=== PATIENT | female | born 1970 | race Caucasian/White ===

== ENCOUNTER 2016-10-06 21:16 | Emergency (ER) | payer SELFPAY ==
[2016-10-06 21:21] VITALS: BP 137/89; PULSE 85; TEMP 97.9; BMI 42.5
--- NOTE | 2016-10-06 22:28 | PDOC ---
History of Present Illness - General History Source: Patient Exam Limitations: No Limitations - History of Present Illness Initial Comments: 10/06/16 22:42 The patient is a 46 year old female with significant past medical history of kidney stones who presents to the ED for 2 days of left flank pain. Patient states having a history of kidney stones and passed gravel recently. She reports she was seen by her doctor earlier today where she was informed that she probably has a kidney stone without any study being done. A urinalysis was done, which was negative. She was given oxycontin with no relief. She denies dysuria, hematuria, urgency, and frequency. Patient also has complaints of nausea, but no vomiting. The patient denies fever, chills, cough, SOB, chest pain, abdominal pain, and diarrhea. Allergies: NKDA Social History: No alcohol, tobacco, or drug use reported. Past Surgical History: appendectomy, x2 PCP: Dr. Jo Al-Joy <Amy Caballero - Last Filed: 10/07/16 02:00> - General History Source: Patient <GradyBautista - Last Filed: 10/07/16 02:11> - General Chief Complaint: Pain Stated Complaint: PAIN, ACUTE Time Seen by Provider: 10/06/16 22:20 Past History <Amy Caballero - Last Filed: 10/07/16 02:00> - Past Medical History Thyroid Disease: Yes - Surgical History Appendectomy: Yes - Psycho/Social/Smoking Cessation Hx Anxiety: Yes Suicidal Ideation: No Smoking History: Never smoked <Bautista Rasmussen - Last Filed: 10/07/16 02:11> - Past Medical History Allergies/Adverse Reactions: Allergies Allergy/AdvReac Type Severity Reaction Status Date / Time No Known Allergies Allergy Verified 10/06/16 21:20 Home Medications: Ambulatory Orders Ibuprofen 800 mg PO TID #30 tablet 10/07/16 Levofloxacin [Levaquin -] 500 mg PO DAILY #7 tablet 10/07/16 Metoclopramide HCl [Reglan -] 10 mg PO TID #30 tablet 10/07/16 Review of Systems - Review of Systems Able to Perform ROS?: Yes Comments:: 10/06/16 22:42 CONSTITUTIONAL: Absent: fever, no chills, no fatigue EYES: Absent: visual changes ENT: Absent: ear pain, no sore throat CARDIOVASCULAR: Absent: chest pain, no palpitations RESPIRATORY: Absent: cough, no SOB GI: +nausea Absent: abdominal pain, no vomiting, no constipation, no diarrhea GENITOURINARY: +left flank pain Absent: dysuria, no frequency, no hematuria MUSCULOSKELETAL: Absent: back pain, no arthralgia, no myalgia SKIN: Absent: rash NEURO: Absent: headache <Amy Caballero - Last Filed: 10/07/16 02:00> *Physical Exam - Vital Signs Last Vital Signs Temp Pulse Resp BP Pulse Ox 97.9 F 85 18 137/89 100 10/06/16 21:17 10/06/16 21:17 10/06/16 21:17 10/06/16 21:17 10/06/16 21:17 - Physical Exam Comments: 10/06/16 22:42 GENERAL: Well-appearing, well-nourished. No apparent distress. HEENT: Normocephalic, atraumatic. PERRL, EOM intact. CARDIOVASCULAR: Normal S1, S2. Regular rate and rhythm. PULMONARY: Clear to auscultation bilaterally. ABDOMEN: Soft, non-distended, non-tender. MUSCULOSKELETAL: Left CVA tenderness EXTREMITIES: Normal ROM in all four extremities. No gross deformities. SKIN: Warm, dry. No rash NEUROLOGICAL: No focal neurological deficits. <Amy Caballero - Last Filed: 10/07/16 02:00> - Vital Signs Last Vital Signs Temp Pulse Resp BP Pulse Ox 97.9 F 85 18 137/89 100 10/06/16 21:17 10/06/16 21:17 10/06/16 21:17 10/06/16 21:17 10/06/16 21:17 <Bautista Rasmussen - Last Filed: 10/07/16 02:11> ED Treatment Course - RADIOLOGY Radiograph Interpretation: 10/07/16 02:00 EXAM: CT ABDOMEN AND PELVIS Reviewed by Imaging concrete floater: FINDINGS: Abdomen Liver: Normal Spleen: Normal Pancreas: Normal Gallbladder: Normal Stomach: Normal Small bowel: Normal Large bowel: Normal Appendix: Normal Adrenals:Normal Kidneys: There is a 2 mm stone in the proximal left ureter with moderate hydronephrosis and proximal ureteral distention. There is a left calyceal stone Vascular: Normal Lymphatic: Normal Peritoneal: No free peritoneal air or fluid Pelvis: Uterus: normal Rectum: Normal Bladder: Normal The inferior thorax: Normal General: Skeletal: Normal Abdominal wall: Normal IMPRESSION: Obstructive uropathy <Amy Caballero - Last Filed: 10/07/16 02:00> Medical Decision Making - Medical Decision Making 10/07/16 02:11 Dr. Rasmussen: The scribe's documentation has been prepared under my direction and personally reviewed by me in its entirery. I confirm that the note above accurately reflects all work, treatment, procedures, and medical decision making performed by me. <Bautista Rasmussen - Last Filed: 10/07/16 02:11> *DC/Admit/Observation/Transfer - Attestations Scribe Attestion: 10/06/16 22:42 Documentation prepared by Amy Caballero, acting as medical detail representative for Bautista Rasmussen DO. <Amy Caballero - Last Filed: 10/07/16 02:00> - Discharge Dispostion Admit: No <Bautista Rasmussen - Last Filed: 10/07/16 02:11> Diagnosis at time of Disposition: Renal calculus, left Hydronephrosis Qualifiers: Hydronephrosis type: unspecified Qualified Code(s): N13.30 - Unspecified hydronephrosis - Discharge Dispostion Disposition: HOME Condition at time of disposition: Stable - Prescriptions Prescriptions: Ibuprofen 800 mg PO TID #30 tablet Levofloxacin [Levaquin -] 500 mg PO DAILY #7 tablet Metoclopramide HCl [Reglan -] 10 mg PO TID #30 tablet - Referrals Referrals: Jo Martinez MD [Primary Care Provider] - Jose M Ken MD [Staff Physician] - - Patient Instructions Printed Discharge Instructions: Hydronephrosis -- Adult, DI for Kidney Stones
[2016-10-06] MEDS ORDERED: morphine CARPU-JECT 2 MG/1 ML DISP.SYRIN IM ONE (22:30)
[2016-10-06] MEDS ORDERED: morphine CARPU-JECT 10 MG/1 ML DISP.SYRIN ONE (22:41)
[2016-10-06 23:30] LABS: URINE APPEARANCE SLCLOUDY; URINE BILIRUBIN NEGATIVE (NEGATIVE); URINE BLOOD 3+ (NEGATIVE); URINE COLOR YELLOW; URINE GLUCOSE (UA) NEGATIVE (NEGATIVE); URINE KETONE NEGATIVE (NEGATIVE); URINE LEUK ESTERASE NEGATIVE (NEGATIVE); URINE NITRITE NEGATIVE (NEGATIVE); URINE PROTEIN NEGATIVE (NEGATIVE); URINE UROBILINOGEN NEGATIVE mg/dL (0.2-1.0)
[2016-10-06 23:38] LABS: URINE MUCUS FEW; URINE RBC 37 /hpf (0-3); URINE WBC 12 /hpf (3-5)
[2016-10-07] MEDS ORDERED: LEVOFLOXACIN 500 MG TABLET (FP) PO ONE (02:06)
[2016-10-07] MEDS ORDERED: IBUPROFEN 400 MG TABLET (FP) PO ONE ×2 (02:07→02:25)
[2016-10-07] MEDS ORDERED: LEVOFLOXACIN 500 MG TABLET (FP) ONE (02:24)
== END 2016-10-07 02:21 | disposition home or self-care (01) ==
LOC: JER 21:16
PROC: 3E023NZ Introduction of Analgesics, Hypnotics, Sedatives into Muscle, Percutaneous Approach (ICD-10-PCS; principal; 2016-10-06)
DX: N13.2 Hydronephrosis with renal and ureteral calculous obstruction (principal); Z87.442 Personal history of urinary calculi
CPT/HCPCS: 74176; 81003; 81015; 84703; 87086; 99281-25